=== PATIENT | female | born 1995 | race Caucasian/White ===

== ENCOUNTER 2017-01-26 11:26 | Emergency (ER) | payer BC, OTHER, MEDICAID ==
[2017-01-26 11:49] VITALS: BP 107/72
--- NOTE | 2017-01-26 12:09 | UC ---
General HPI - HPI Summary HPI Summary: complant of numbness in left leg for approx 1 year- went to see neurologist last year in [place]-started on medication for migraines nad leg numbness but never start medication complaint of right leg numbness from the lateral side of her lower leg and into her foot that started 2 weeks ago easily bruising on her extrwmities for a year getting episodes of weakness and fatigue for approx 1 week frequent headaches and feels like things go "black" currently has headache behind her eyes and radiates into the back of her head- hasn't taken any medication for headache wakes up and feels confused easily feels like she is stuttering at times poor appetitie, feels nauseated, currently having mood swings from bipolar - has thoughts about suicide for approx 2 years- denies any plans for harming herself at this time chronic lower back pain hasn't taken any medications for her headache today - History of Current Complaint Chief Complaint: UCGeneralIllness Stated Complaint: WEAKNESS, BRUISING, DIZZINESS Hx Obtained From: Patient Hx Last Menstrual Period: HAS THE MIRENA IUD, DOES HAVE NOT HAVE REG PERIODS - Allergy/Home Medications Allergies/Adverse Reactions: Allergies Allergy/AdvReac Type Severity Reaction Status Date / Time No Known Allergies Allergy Verified 01/26/17 11:30 Home Medications: Home Medications Levonorgestrel (Iud) [Mirena IUD] 0 mcg 01/26/17 [History] traZODone TAB* [Desyrel TAB*] 50 mg PO BEDTIME PRN 01/26/17 [History Confirmed 01/26/17] PMH/Surg Hx/FS Hx/Imm Hx Previously Healthy: Yes - chronic back pain , left leg numbness Neurological History: Migraine Psychological History: Bipolar Disorder - Surgical History Surgical History: Yes Surgery Procedure, Year, and Place: GASTROSCOPE FOR BENIGN TUMOR OF ESOPHAGUS - Family History Known Family History: Positive: Diabetes - both maternal and paternal grandmothers have diabetes, Other - Social History Occupation: Unemployed Lives: Alone Alcohol Use: Occasionally Substance Use Type: None Substance Use Comment - Amount & Last Used: weekly, last time 1 day ago Smoking Status (MU): Former Smoker Type: Cigarettes Amount Used/How Often: 2 per day Length of Time of Smoking/Using Tobacco: ~age 18 Have You Smoked in the Last Year: Yes When Did the Patient Quit Smoking/Using Tobacco: APR 2016 Review of Systems Constitutional: Fatigue Skin: Negative Eyes: Negative ENT: Negative Respiratory: Negative Cardiovascular: Negative Gastrointestinal: Nausea Genitourinary: Negative Motor: Negative Neurovascular: Negative Musculoskeletal: Other: - lower back pain Neurological: Headache, Numbness - right leg Psychological: Negative All Other Systems Reviewed And Are Negative: Yes Physical Exam Triage Information Reviewed: Yes Appearance: No Pain Distress, Well-Nourished, Thin Vital Signs: Initial Vital Signs Temp 99.8 F 01/26/17 11:33 Pulse 101 01/26/17 11:33 Resp 20 01/26/17 11:33 BP 107/72 01/26/17 11:33 Pulse Ox 100 01/26/17 11:33 Vital Signs Reviewed: Yes Eyes: Positive: Conjunctiva Clear ENT: Positive: Pharynx normal, TMs normal Neck: Positive: Supple, No Lymphadenopathy Respiratory: Positive: Lungs clear, Normal breath sounds, No respiratory distress Cardiovascular: Positive: RRR, No Murmur, Pulses Normal, Brisk Capillary Refill Abdomen Description: Positive: Nontender, No Organomegaly, Soft. Negative: CVA Tenderness (R), CVA Tenderness (L), Distended, Guarding Bowel Sounds: Positive: Present Musculoskeletal: Positive: Strength Intact, No Edema Neurological: Positive: Alert, Other: - CNll-Xll normal, negative Romberg, patellar relfexes intact Psychological Exam: Normal Skin Exam: Normal Course/Dx - Course Course Of Treatment: exam completed. presentation with complaints of headaches , weakness, episodes of confusion and right leg numbness. Advised to go to the emergency department for further evaluation of these symptoms today and followup with PCP. grandmother agrees to transport patient to [facility] today - Differential Dx - Multi-Symptom Provider Diagnoses: headache,fatigue, left leg numbness Discharge - Discharge Plan Condition: Stable Disposition: HOME Patient Education Materials: Migraine Headache (ED) Referrals: Saw Mott [Primary Care Provider] - [facility] [place] [facility] [place]Outside] Additional Instructions: It is recommended that you seek care in the emergency department to day to evaluate your right leg numbness, confusion and feelings of weakness. Please call your primary care physician for followup care WE have provided a list of primary care physician in [place].
== END 2017-01-26 12:38 | disposition home or self-care (01) ==
LOC: UCCORT 11:26
DX: R51 Headache (principal); R53.83 Other fatigue; R20.0 Anesthesia of skin; M54.9 Dorsalgia, unspecified; F31.9 Bipolar disorder, unspecified; Z87.891 Personal history of nicotine dependence
CPT/HCPCS: 99211; G0463

== ENCOUNTER 2018-03-07 17:42 | Emergency (ER) | payer BC, OTHER, MEDICAID ==
[2018-03-07 18:35] VITALS: BP 135/73
--- NOTE | 2018-03-07 20:15 | UC ---
UC General HPI - HPI Summary HPI Summary: PT STATES SHE HAS BEEN COUGHING UP OCCASIONAL SPECS OF BLOOD IN HER SPUTUM X 1 YEAR. SHE HAD TOLD HER PCP AND IT WAS ATTRIBUTED TO THE REMOVAL OF AN ESOPHAGEAL MASS FROM YEARS AGO THE WAS BENIGN. SHE ALSO NOTED SOME BLOOD IN HER VOMIT LAST PM WITH SOME N/V THAT FOLLOWED DRINKING TO [employer]. SHE DENIES ANY ABDOMINAL PAIN WELL BLACK OR BLOODY STOOL. NO HX BLEEDING DISORDER. PMH:PUD. DENIES HX ALCOHOL ABUSE. - History of Current Complaint Chief Complaint: UCAbdominalPain Stated Complaint: BLOOD IN VOMIT Time Seen by Provider: 03/07/18 19:08 Hx Obtained From: Patient Hx Last Menstrual Period: has mirena Pain Intensity: 2 Associated Signs & Symptoms: Positive: Cough, Hematemesis, Hemoptysis. Negative : Abdominal Pain - Allergy/Home Medications Allergies/Adverse Reactions: Allergies Allergy/AdvReac Type Severity Reaction Status Date / Time No Known Allergies Allergy Verified 03/07/18 18:35 Home Medications: Home Medications Cbd Oil 600 mg DAILY 03/07/18 [History Confirmed 03/07/18] PMH/Surg Hx/FS Hx/Imm Hx - Additional Past Medical History Additional PMH: pud, ESOPHAGEAL MASS-RESECTED AND BENIGN, BIPOLAR, BORDERLINE PERSONALITY DISORDER. - Surgical History Surgical History: Yes Surgery Procedure, Year, and Place: GASTROSCOPE FOR BENIGN TUMOR OF ESOPHAGUS - Family History Known Family History: Positive: Diabetes - both maternal and paternal grandmothers have diabetes, Other - Social History Occupation: Disabled Lives: Alone Alcohol Use: Occasionally Substance Use Type: None Substance Use Comment - Amount & Last Used: few days a week; CBD oil daily Smoking Status (MU): Current Some Day Smoker Type: Cigarettes Amount Used/How Often: 2 per day Length of Time of Smoking/Using Tobacco: ~age 18 Have You Smoked in the Last Year: Yes When Did the Patient Quit Smoking/Using Tobacco: APR 2016 - Immunization History Vaccination Up to Date: Yes Review of Systems Constitutional: Negative Skin: Negative Eyes: Negative ENT: Negative Respiratory: Cough Cardiovascular: Negative Gastrointestinal: Vomiting, Nausea Genitourinary: Negative Motor: Negative Neurovascular: Negative Musculoskeletal: Negative Neurological: Negative Psychological: Negative Is Patient Immunocompromised?: No All Other Systems Reviewed And Are Negative: Yes Physical Exam Triage Information Reviewed: Yes Appearance: Well-Appearing Vital Signs: Initial Vital Signs Temp 98.5 F 03/07/18 18:23 Pulse 92 03/07/18 18:23 Resp 18 03/07/18 18:23 BP 135/73 03/07/18 18:23 Pulse Ox 100 03/07/18 18:23 Vital Signs Reviewed: Yes Eyes: Positive: Conjunctiva Clear ENT: Positive: Pharynx normal, TMs normal. Negative: Nasal congestion, Nasal drainage Neck: Positive: Supple, Nontender, No Lymphadenopathy Respiratory: Positive: Lungs clear, Normal breath sounds, No respiratory distress, Other: - I HAD PT COUGH AND SPUTUM IS CLEAR. Cardiovascular: Positive: RRR, No Murmur Abdomen Description: Positive: Nontender, No Organomegaly, Soft. Negative: Distended, Guarding Bowel Sounds: Positive: Present, Other: - RECTAL EXAM: STOOL BROWN AND GUIAC NEGATIVE Musculoskeletal: Positive: ROM Intact Neurological: Positive: Alert Psychological: Positive: Age Appropriate Behavior Skin Exam: Normal, Other - NO GROSS BRUISING Diagnostics - Radiology No standard instances Xray Interpretation: No Acute Changes - WET READ Course/Dx - Course Course Of Treatment: NON TOXIC, NO ACUTE ABDOMEN, CXR UNREMARKABLE. PT AGREES TO STOP ALCOHOL USE. WILL TX WITH A PPI AND CLOSE F/U PCP FOR RECHECK. - Differential Dx - Multi-Symptom Provider Diagnoses: HEMOPTYSIS. HEMATAEMESIS Discharge - Sign-Out/Discharge Documenting (check all that apply): Patient Departure All imaging exams completed and their final reports reviewed: No - Discharge Plan Condition: Stable Disposition: HOME Prescriptions: Omeprazole CAP* [Prilosec CAP* 20 MG] 20 mg PO DAILY #30 cap. Patient Education Materials: Hemoptysis (ED), Hematemesis (ED) Referrals: Saw Mott [Primary Care Provider] - As Soon As Possible Additional Instructions: GO TO THE ER FOR ANY WORSENING. - Billing Disposition and Condition Condition: STABLE Disposition: Home
--- NOTE | 2018-03-08 08:07 | RAD ---
INDICATION: Hemoptysis. History of tobacco use. COMPARISON: No relevant prior exams available on the [facility] PACS for comparison. TECHNIQUE: Dual energy PA and routine lateral views of the chest were obtained. REPORT: Elevated lung volumes. Clear lungs and pleural spaces. Negative for pneumothorax. The heart, pulmonary vasculature, and mediastinal contours are unremarkable. Unremarkable osseous structures and soft tissue contours. IMPRESSION: #. Elevated lung volumes may reflect obstructive lung disease or simply exuberant inspiratory effort for examination. #. No evidence for pneumonia presence of a suspicious focal pulmonary lesion. #. Negative for pneumothorax. R0
--- NOTE | 2018-03-09 12:01 | UC ---
- Progress Note Progress Note: Patient Name: RUI CASTRO Medical Record#: [id number] Ordering Physician: Milagros POE Acct.#: [id number] : 1995 Age: 22 Sex: F Location: URGENT [facility] Exam Date: 03/07/181940 ADM Status: [facility] ER Order Information: CHEST PA & LAT 2 VWS Accession Number: [id number] CPT: 66213 ADDENDUM The second bullet point in the impression should correctly state: #. No evidence for pneumonia or presence of a suspicious focal pulmonary lesion. <Electronically signed by Cristiano Vieira MD in [place]>03/09/181129 Dictated by: Cristiano Vieira MD Dictated Date/Time:03/09/181129 Transcribed Date/Time: 03/09/181129 Copy to: Saw GUTIERREZ; Milagros POE; Alfredo Resendiz MD INDICATION: Hemoptysis. History of tobacco use. COMPARISON: No relevant prior exams available on the [facility] PACS for comparison. TECHNIQUE: Dual energy PA and routine lateral views of the chest were obtained. REPORT: Elevated lung volumes. Clear lungs and pleural spaces. Negative for pneumothorax. The heart, pulmonary vasculature, and mediastinal contours are unremarkable. Unremarkable osseous structures and soft tissue contours. IMPRESSION: #. Elevated lung volumes may reflect obstructive lung disease or simply exuberant inspiratory effort for examination. #. No evidence for pneumonia presence of a suspicious focal pulmonary lesion. #. Negative for pneumothorax. R0 <Electronically signed by Cristiano Vieira MD in [place]> 03/08/18 08 Dictated By: Cristiano Vieira MD Dictated Date/Time: 03/08/18 08 Transcribed Date/Time: 03/08/18 08 Copy to: This report is only to be considered final once signed by the Provider(s) as displayed in the "<Electronically Signed by >" field (s). Absence of a signature indicates the report is in a draft status and still needs to be finalized. In the event this document was created by someone other than the signing Provider, the individual initiating the document will be listed in the "Entered by:" or "Dictated by:" elena. 1 of 2 Discharge - Sign-Out/Discharge Documenting (check all that apply): Post-Discharge Follow Up All imaging exams completed and their final reports reviewed: Yes - Discharge Plan Condition: Stable Disposition: HOME Prescriptions: Omeprazole CAP* [Prilosec CAP* 20 MG] 20 mg PO DAILY #30 cap. Patient Education Materials: Hemoptysis (ED), Hematemesis (ED) Referrals: Saw Mott [Primary Care Provider] - As Soon As Possible Additional Instructions: GO TO THE ER FOR ANY WORSENING. - Billing Disposition and Condition Condition: STABLE Disposition: Home
== END 2018-03-07 20:24 | disposition home or self-care (01) ==
LOC: UCCORT 17:42
DX: R04.2 Hemoptysis (principal); K92.0 Hematemesis; F17.210 Nicotine dependence, cigarettes, uncomplicated
CPT/HCPCS: 71046; 82270; 99212; G0463

== ENCOUNTER 2019-08-14 17:10 | Emergency (ER) | payer BC, MEDICAID ==
[2019-08-14 18:00] VITALS: BP 132/77
--- NOTE | 2019-08-14 19:20 | UC ---
Complaint Female HPI - HPI Summary HPI Summary: 23 y/o female presents to the urgent care c/o frequency and burning on urination s/ B/L lower abdominal pain, RT>LF since last night. Pt reports She has P<HX of ulcers at age 14 which seems to have resolved for the past 2 years. She also has an IUD for the past 3 years However for the past 2 moths she has experience=d on and off abdominal discomfort. However, Last night she lower developed lower abdominal pain below her umbilicus or bladder radiating to her lower back. Overnight , she has experienced frequency on urination. This morning pain had worsen RT side > LF side associated w/ no appetite. Pain is sharp and cramping at times. She denies blood in the stool and BM are soft. LMP: 3 years ago when IUD was placed. Pt denies vaginal discharge or Hx of STD' s and she hasn't been sexually active lately. She feels nauseous, but denies vomiting. She also denies fever, but felt hot and then some chills in the afternoon. She denies ABREU, dizziness, rash, neck pain, SOB, chest pain, or weakness. Pt is UTD w/ all vaccines ofr her age and denies recent travel outside the country. Pt request albuterol inhaler refill. - History Of Current Complaint Chief Complaint: UCGU Stated Complaint: URINARY,ABD PAIN Time Seen by Provider: 08/14/19 19:18 Hx Obtained From: Patient Hx Last Menstrual Period: unknown ?: No - Pt w/ IUD for the past 3 years Onset/Duration: Gradual Onset, Lasting Days - 1 day, Still Present, Worse Since - this afternoon Timing: Constant Severity Initially: Mild Severity Currently: Moderate Pain Intensity: 6 Pain Scale Used: 0-10 Numeric Character: Sharp, Cramping Aggravating Factor(s): Movement - jumping, Urination Alleviating Factor(s): Other - NPO Associated Signs And Symptoms: Positive: Back Pain - lower back pain, Nausea. Negative: Fever, Vaginal Bleeding/Discharge, Vaginal Discharge, Genital Swelling , Genital Blisters, Retained Foregin Body (Specify) - Risk Factors Ectopic Risk Factor: Negative Ovarian Torsion Risk Factor: Negative - Allergies/Home Medications Allergies/Adverse Reactions: Allergies Allergy/AdvReac Type Severity Reaction Status Date / Time No Known Allergies Allergy Verified 08/14/19 18:00 Home Medications: Home Medications ALPRAZolam TAB* [Xanax TAB*] 1 mg PO TID PRN 01/10/16 [History Confirmed ] lamoTRIgine TAB(*) [Lamictal TAB(*)] 200 mg PO BEDTIME 01/10/16 [History Confirmed 08/14/19] Levonorgestrel (Iud) [Mirena IUD] 0 mcg DAILY 01/26/17 [History Confirmed ] Albuterol HFA INHALER* [Ventolin HFA Inhaler*] 1 - 2 puff INH Q6H PRN #1 mdi [Rx] Vit B Comp C No.24/Iron/Folic [Nephron FA Tablet] 1 mg PO DAILY 08/14/19 [ History Confirmed 08/14/19] PMH/Surg Hx/FS Hx/Imm Hx Previously Healthy: Yes Respiratory History: Asthma GI/ History: Ulcer - gastric Other Psychological History: ADHD - Surgical History Surgical History: Yes Surgery Procedure, Year, and Place: GASTROSCOPE FOR BENIGN TUMOR OF ESOPHAGUS - Family History Known Family History: Positive: Cardiac Disease, Hypertension, Diabetes - both maternal and paternal grandmothers have diabetes, Other - Social History Occupation: Unemployed Lives: With Family Alcohol Use: Occasionally Substance Use Type: Marijuana Substance Use Comment - Amount & Last Used: few days a week; CBD oil daily Smoking Status (MU): Former Smoker Type: Cigarettes Amount Used/How Often: 2 per day Length of Time of Smoking/Using Tobacco: ~age 18 Have You Smoked in the Last Year: Yes When Did the Patient Quit Smoking/Using Tobacco: APR 2016 - Immunization History Vaccination Up to Date: Yes Review of Systems All Other Systems Reviewed And Are Negative: Yes Constitutional: Positive: Fever - low subjective grade fever at home this afternoon, Chills, Other - no appetite Skin: Positive: Negative Eyes: Positive: Negative ENT: Positive: Negative Respiratory: Positive: Negative Cardiovascular: Positive: Negative Gastrointestinal: Positive: Abdominal Pain - B/L lower abdominal pain RT>LF, Nausea Genitourinary: Positive: Dysuria, Frequency Motor: Positive: Negative Neurovascular: Positive: Negative Musculoskeletal: Positive: Other: - lower back pain Neurological/Mental Status: Positive: Negative Psychological: Positive: Negative Is Patient Immunocompromised?: No Physical Exam - Summary Physical Exam Summary: Vital Signs Reviewed: Yes General:Patient is a well developed and nourished female who is sitting comfortably in the examining table. Patient is not in any acute respiratory distress. Eyes: Positive: Conjunctiva Clear - PERRLA, EOMI, fundi grossly normal ENT: Positive: Normal ENT inspection, Hearing grossly normal, Pharynx normal, TMs normal Neck: Positive: Supple, Nontender, No Lymphadenopathy Respiratory: Positive: Chest non-tender, Lungs clear, Normal breath sounds, No respiratory distress Cardiovascular: Positive: RRR,S1 and S2 present, No Murmur, Pulses Normal, Brisk Capillary Refill Abdomen Description: Positive: Abd: Flat with no distention. No surface trauma , scars, incisions. hyperactive bowel sounds present in all four quadrants. No guarding, or rigidity to palpation. No masses palpated, no pulsation in epigastric area. No organomegaly. Negative [place]olin[place] signs. Positive periumbilical tenderness. No rebound in the lower quadrants. Tenderness over McBurneys point. . Good femoral pulses bilaterally. No hernia noted. No CVAT bilaterally Musculoskeletal: Positive: Strength Intact, ROM Intact, No Edema,FROM in all major joints, no edema, no cyanosis or clubbing. Neuro: Alert and oriented x 3. No acute neurological deficits. Speech is normal. Psychological: WNL Skin: Dry and warm Triage Information Reviewed: Yes Vital Signs: Initial Vital Signs Temp 100.1 F 08/14/19 17:48 Pulse 99 08/14/19 17:48 Resp 18 08/14/19 17:48 BP 132/77 08/14/19 17:48 Pulse Ox 100 08/14/19 17:48 Complaint Female Dx - Course Course Of Treatment: 23 y/o female presents to the urgent care c/o frequency and burning on urination s/ B/L lower abdominal pain, RT>LF since last night. Pt reports She has P<HX of ulcers at age 14 which seems to have resolved for the past 2 years. She also has an IUD for the past 3 years However for the past 2 moths she has experience=d on and off abdominal discomfort. However, Last night she lower developed lower abdominal pain below her umbilicus or bladder radiating to her lower back. Overnight , she has experienced frequency on urination. This morning pain had worsen RT side > LF side associated w/ no appetite. Pain is sharp and cramping at times. She denies blood in the stool and BM are soft. LMP: 3 years ago when IUD was placed. Pt denies vaginal discharge or Hx of STD' s and she hasn't been sexually active lately. She feels nauseous, but denies vomiting. She also denies fever, but felt hot and then some chills in the afternoon. She denies ABREU, dizziness, rash, neck pain, SOB, chest pain, or weakness. Pt is UTD w/ all vaccines ofr her age and denies recent travel outside the country. Pt request albuterol inhaler refill. Hx obtained. PT hemodynamically stable, low grade fever: 100.1F , HR:99bpm w/ Point tenderness over the periumbilical area and over McBurneys point on examination and very painful when ask to jump. Pt w/ decrease appetite and PMHX of gastric ulcer. UA ordered: negative, test: negative. At this moment No US available to r/o ovarian cyst or torsion. Pt's symptoms discussed w/ DR ansari since I think Pt needs a higher level of care to r/o appendicitis, ovarian torsion and stat blood work. DR Ansari recommended Pt should go to the [facility] for further management. Pt explained the need to r/o appendicitis or any other etiology on the RLQ and importance to go to the [facility] by ambulance. Pt states her father is in the waiting room and will take her to the ER by private car. Pt explained the risks of not taking ambulance transfer. I spoke and discussed Pt's symptoms w/ DIRECTOR OF RESERVATIONS Babita Lafleur ar [facility] who accepted PT. Pt advised to continue NPO and left the clinic ambulating, hemodynamically stable, A&OX3. Pt understood and agreed w/ D/C instructions. - Differential Dx/Diagnosis Differential Diagnosis/HQI/PQRI: Cervicitis, Ovarian Torsion, , Renal Colic, Ureteral Stone, Urinary Tract Infection Provider Diagnosis: Right lower quadrant abdominal pain - Physician Notifications Discussed Patient Care With: Alfredo Resendiz - Dr Resendiz agreed w/ Pt's plan of care. Discharge ED - Sign-Out/Discharge Documenting (check all that apply): Patient Departure - Pt highly recommended to go to [facility] for further evaluation and treatment on her RLQ abdominal pain All imaging exams completed and their final reports reviewed: No Studies - Discharge Plan Condition: Stable Disposition: HOME-RECOMMEND TO ED Prescriptions: Albuterol HFA INHALER* [Ventolin HFA Inhaler*] 1 - 2 puff INH Q6H PRN #1 mdi PRN Reason: asthma Patient Education Materials: Acute Abdominal Pain (ED) Referrals: Saw Mott [Primary Care Provider] - Additional Instructions: I think you need a higher level or care for your presenting symptoms. I highly recommend you to go to the ER for further evaluation and treatment. The risks of not going can be , sepsis, heart attack, etc. I spoke to the ER attending DIRECTOR OF RESERVATIONS Babita Lafleur . They are expecting you. - Billing Disposition and Condition Condition: STABLE Disposition: Home-Recommend to ED
== END 2019-08-14 19:55 | disposition home health service (06) ==
LOC: UCCORT 17:10
DX: R10.31 Right lower quadrant pain (principal); R35.0 Frequency of micturition; M54.9 Dorsalgia, unspecified; Z87.891 Personal history of nicotine dependence; Z97.5 Presence of (intrauterine) contraceptive device
CPT/HCPCS: 81003; 84702; 99212; G0463